=== PATIENT | female | born 1985 | race Hispanic/Latino ===

== ENCOUNTER 2021-07-04 22:31 | Emergency (ER) | payer SELFPAY ==
[~2021-07-04] VITALS: Ht 152.4 cm; Wt 74.8 kg
[2021-07-05] MEDS ORDERED: ACETAMIN/BUTALBITAL/CAFFEINE TAB PO ONE (01:30)
[2021-07-05 01:32] VITALS: BP 125/90
[2021-07-05] MEDS ORDERED: ACETAMIN/BUTALBITAL/CAFFEINE TAB ONE (01:43)
== END 2021-07-05 02:00 | disposition home or self-care (01) ==
LOC: ER 23:00
DX: R51.9 Headache, unspecified (principal); I10 Essential (primary) hypertension
CPT/HCPCS: 70450; 99283